=== PATIENT | female | born 1955 | race African-American/Black ===

== ENCOUNTER 2016-03-02 15:16 | Observation (INO) ==
--- NOTE | 2016-03-02 15:37 | Emergency Department Note ---
Disposition Clinical Impression: Pneumonia, Abdominal pain, Hypertension, Chest pain, Family history of coronary artery disease, Obesity, Dyspnea on exertion Disposition: Admitted As Inpatient General Adult HPI - General Chief complaint: ED Chest Pain Stated complaint: CP/CATRACHITO Time Seen by Provider: 03/02/16 15:35 - History of Present Illness HPI Narrative: 61-year-old female reports to the emergency department complaining of chest pain radiating to the left side and down the arm.. She recently had right sided pneumonia and was treated for that. The patient went to a special education administrator office and they were concerned because the patient is expressing chest pain. She also complains of abdominal pain mostly in the epigastric area. There is no history of trauma. No coughing up blood or leg swelling or pain. There is no history of sore throat or runny nose. There is been no diarrhea or bloody stool. The patient describes some constipative change and urinary symptoms. No back pain. No trouble moving the arms or legs independently. There is no history of bowel or bladder dysfunction. No history of acute dysarthria or confusion or seizure. The patient denies any previous coronary disease. There is no personal history of DVT PE or cancer. There is no history of syncope. The pain in the chest is not associated with movement or breathing. She reports a pressure-like sensation radiating to left down the left arm. There is no history of coldness blueness numbness or weakness of the arms or legs. The patient does describe significant dyspnea on exertion. She reports she had a remote stress test but is never had a heart catheterization or cardiac stent. She describes a family history of early coronary disease particularly in the mother. The patient does not usually have chest pain. Pain Scale: 10 - Related Data Home Medications Medication Instructions Recorded Confirmed Aspirin Enteric Coated [Aspirin EC] 81 mg PO DAILY 10/06/14 02/23/15 Citalopram [CeleXA] 40 mg PO DAILY 10/06/14 02/23/15 Esomeprazole Magnesium [Nexium] 40 mg PO DAILY 10/06/14 02/23/15 Estrogens, Conjugated [Premarin] 0.3 mg PO DAILY 10/06/14 02/23/15 HydrOXYzine Pamoate 25 mg PO DAILY PRN 10/06/14 02/23/15 Metoprolol [Lopressor] 25 mg PO BID 10/06/14 02/23/15 Rizatriptan Benzoate [Maxalt Office Nurse Practitioner] 10 mg PO DAILY PRN 02/23/15 02/23/15 Boostrix Tdap 05/15/15 05/15/15 Previous Rx's Medication Instructions Recorded Albuterol Sulfate [Albuterol 2 puff IH Q4HR PRN #1 hfa.aer.ad 02/25/15 Inhaler] Budesonide/Formoterol 80/4.5 2 puff IH BIDR #1 hfa.aer.ad 02/25/15 [Symbicort 80/4.5] PredniSONE 10 mg PO DAILY #33 tablet 02/25/15 Tiotropium [Spiriva] 18 mcg IH 0700 #1 capsule 02/25/15 Clindamycin HCl [Cleocin HCl] 300 mg PO TID #30 cap 05/28/15 Azithromycin [Zithromax] 250 mg PO DAILY #6 tablet 01/07/16 Benzonatate [Tessalon] 200 mg PO TID PRN #30 capsule 01/07/16 GuaiFENesin ER [Mucinex] 600 mg PO BID #20 tbbp.12hr 01/07/16 Doxycycline 100 mg PO BID #14 capsule 01/19/16 MethylPREDNISolone [Medrol] 4 mg PO TAPER #21 tablet 01/19/16 Promethazine/Dextromethorphan 5 ml PO Q6H PRN #120 ml 01/19/16 [Promethazine-Dm Syrup] Azithromycin [Azithromycin 6-Tab 250 mg PO PER PKG DI #6 tab 01/28/16 Pack] Allergies Allergy/AdvReac Type Severity Reaction Status Date / Time Amoxicillin Allergy Unknown See Verified 01/28/16 01:38 Comments cephalexin Allergy Unknown See Verified 01/28/16 01:38 Comments levofloxacin Allergy Unknown See Verified 01/28/16 01:38 Comments loratadine [From Claritin] Allergy Unknown See Verified 01/28/16 01:38 Comments morphine Allergy Unknown Itching Verified 01/28/16 01:38 Oxycodone [From Percocet] Allergy Unknown Itching Verified 01/28/16 01:38 trimethoprim Allergy Unknown See Verified 01/28/16 01:38 Comments promethazine [From Phenergan] AdvReac See Verified 01/28/16 01:38 Comments tamsulosin [From Flomax] AdvReac Chest Pain Verified 01/28/16 01:38 All systems ED: reviewed and negative except as stated. Past Medical History - Past Medical History Medical history: Reports: hypertension, other (Previous stroke) Surgical history: Reports: no surgical history Psychiatric history: Reports: anxiety, depression - Social History Smoking Status: Current every day smoker Smokeless Tobacco Status: No Alcohol use: Reports: none Drug use: Reports: none Physical Exam - General Limitations: no limitations General appearance: alert - Head Head exam: atraumatic, normocephalic, normal inspection - Eye Eye exam: Present: normal appearance, PERRL, EOMI - ENT ENT exam: normal exam, normal oropharynx, mucous membranes moist, normal external ear exam - Neck Neck exam: Present: normal inspection, full ROM, trachea midline. Absent: tenderness - Chest Chest inspection: Present: symmetric chest wall rise. Absent: tenderness - Respiratory Respiratory exam: Present: normal lung sounds bilaterally. Absent: respiratory distress - Cardiovascular Cardiovascular exam: Present: regular rate, normal rhythm, normal heart sounds - Abdominal Exam Abdominal exam: Present: soft, tenderness. Absent: distention, guarding, rebound, rigidity, pulsatile mass Abdominal tenderness: Present: epigastrium, moderate - Extremities Exam Extremities exam: Present: normal inspection, full ROM, normal capillary refill. Absent: tenderness, pedal edema, joint swelling, calf tenderness - Expanded Lower Extremity Exam Hip/Pelvis exam: Present: full ROM. Absent: tenderness Upper leg exam: Present: full ROM. Absent: tenderness Knee exam: Present: full ROM. Absent: tenderness Lower leg exam: Present: full ROM. Absent: tenderness Ankle exam: Present: full ROM. Absent: tenderness Foot/toe exam: Present: full ROM. Absent: tenderness Neurovascular/Tendon exam: Present: normal capillary refill. Absent: motor deficit, sensory deficit, tendon deficit - Back Exam Back exam: Present: normal inspection, full ROM. Absent: tenderness, CVA tenderness (R), CVA tenderness (L), vertebral tenderness - Neurological Exam Neurological exam: Present: alert, oriented X3, CN II-XII intact. Absent: motor sensory deficit - Psychiatric Psychiatric exam: Present: normal affect - Skin Skin exam: Present: warm, dry, intact, normal color. Absent: rash, cyanosis, diaphoresis, erythema, pallor, mottled Course Vital Signs Temperature 97 F L 03/02/16 15:22 Pulse Rate 77 03/02/16 15:22 Respiratory Rate 18 03/02/16 15:22 Blood Pressure 179/87 03/02/16 15:22 O2 Sat by Pulse Oximetry 100 03/02/16 15:22 Temperature 97 F L 03/02/16 15:22 Pulse Rate 76 03/02/16 18:32 Respiratory Rate 16 03/02/16 18:32 Blood Pressure 173/108 03/02/16 18:32 O2 Sat by Pulse Oximetry 100 03/02/16 18:32 Oxygen Delivery Oxygen Delivery Room Air Medical Decision Making - MDM Narrative Medical decision making narrative: The patient is describing dyspnea on exertion associated with chest pain radiating down the left arm. She is over 59, somewhat obese, hypertensive, and has a strong early coronary disease history in her mother. She has not had a stress test or heart catheter for some time. Her symptomatology appears to be new. She also has what appears to be an unresolved pneumonitis on the left side. She was recently treated a few times for bronchitis and pneumonitis which was reportedly on the right. The patient has not been coughing up blood she has no leg swelling or pain there is no evidence of PE. She did describe significant abdominal pain but her CT does not reveal any acute disease. She may have an element of gastritis. The patient's heart scores of 4, she has an apparent upper lobe infection on the left which is either new, resistant, or unresolved from previous. Based on her findings, acute concerns, and cardiovascular risk factors, I thought it would be appropriate to admit the patient, I have consulted the hospitalist foundation coordinator. Aspirin and azithromycin were given. The patient has multiple antibiotic allergies which she describes as severe. - Lab Data Lab results reviewed: Yes I reviewed the patient's lab results. Result diagrams: 03/02/16 15:51 03/02/16 15:51 Lab Results 03/02/16 03/02/16 03/02/16 Range/Units 15:46 15:51 15:51 WBC (4.3-11.1) K/mcL RBC (3.82-4.97) M/mcL Hgb (11.5-15.4) g/dL Hct (35.3-44.9) % MCV (83.0-100.0) fL MCH (28.0-33.3) pg MCHC (31.6-35.5) g/dL RDW (11.5-14.5) % Plt Count (140-400) K/mcL MPV (9.4-12.4) fL Immature Gran % (0-4) % Seg Neutrophils % % Lymphocytes % % Monocytes % % Eosinophils % % Basophils % % Neutrophils # (1.6-8.9) K/mcL Lymphocytes # (0.6-4.6) K/mcL Monocytes # (0.0-1.3) K/mcL Eosinophils # (0.0-0.6) K/mcL Basophils # (0.0-0.2) K/mcL PT 10.8 (9.4-12.1) Seconds INR 1.0 APTT 29.1 (26.0-36.0) Seconds Sodium (136-145) mEq/L Potassium (3.5-4.5) mEq/L Chloride (98-109) mEq/L Carbon Dioxide (19-29) mEq/L BUN (7-20) mg/dL Creatinine (0.57-1.11) mg/dL Est GFR ( Amer) (> 60) Est GFR (Non-Af Amer) (> 60) BUN/Creatinine Ratio (6-26) Glucose (70-99) mg/dL Calculated Osmolality (280-300) Lactic Acid (0.5-2.2) mmol/L Calcium (8.6-10.8) mg/dL Total Bilirubin 0.6 (0.2-1.2) mg/dL Direct Bilirubin 0.2 (0.0-0.5) mg/dL Indirect Bilirubin 0.4 (0.0-1.2) mg/dL AST 21 (5-34) Units/L ALT 17 (0-55) Units/L Alkaline Phosphatase 78 (38-126) Units/L Troponin I (0-0.03) ng/mL C-Reactive Protein 2 (Less than 5) mg/L Serum Total Protein 7.1 (6.0-8.3) g/dL Albumin 3.9 (3.5-5.0) g/dL Globulin 3.2 (2.4-3.5) g/dL Albumin/Globulin Ratio 1.2 (1.1-2.2) Lipase 23 (8-78) Units/L Urine Color Yellow (Yellow) Urine Clarity Clear (Clear) Urine pH 7.0 (5.0-8.0) pH Units Ur Specific [place] 1.017 (1.010-1.025) Urine Protein Negative (Neg-Trace) mg/dL Urine Glucose (UA) Normal (Normal) mg/dL Urine Ketones Negative (Negative) mg/dL Urine Blood Negative (Negative) Urine Nitrite Negative (Negative) Urine Bilirubin Negative (Negative) Urine Urobilinogen Normal (Normal) mg/dL Ur Leukocyte Esterase Negative (Negative) 03/02/16 03/02/16 03/02/16 Range/Units 15:51 15:51 15:51 WBC 5.9 (4.3-11.1) K/mcL RBC 4.34 (3.82-4.97) M/mcL Hgb 12.3 (11.5-15.4) g/dL Hct 37.0 (35.3-44.9) % MCV 85.3 (83.0-100.0) fL MCH 28.3 (28.0-33.3) pg MCHC 33.2 (31.6-35.5) g/dL RDW 14.1 (11.5-14.5) % Plt Count 252 (140-400) K/mcL MPV 10.2 (9.4-12.4) fL Immature Gran % 0.3 (0-4) % Seg Neutrophils % 40.6 % Lymphocytes % 46.2 % Monocytes % 9.8 % Eosinophils % 2.4 % Basophils % 0.7 % Neutrophils # 2.4 (1.6-8.9) K/mcL Lymphocytes # 2.7 (0.6-4.6) K/mcL Monocytes # 0.6 (0.0-1.3) K/mcL Eosinophils # 0.1 (0.0-0.6) K/mcL Basophils # 0.0 (0.0-0.2) K/mcL PT (9.4-12.1) Seconds INR APTT (26.0-36.0) Seconds Sodium 139 (136-145) mEq/L Potassium 4.0 (3.5-4.5) mEq/L Chloride 106 (98-109) mEq/L Carbon Dioxide 22 (19-29) mEq/L BUN 13 (7-20) mg/dL Creatinine 0.79 (0.57-1.11) mg/dL Est GFR ( Amer) > 60 (> 60) Est GFR (Non-Af Amer) > 60 (> 60) BUN/Creatinine Ratio 16 (6-26) Glucose 98 (70-99) mg/dL Calculated Osmolality 288 (280-300) Lactic Acid (0.5-2.2) mmol/L Calcium 9.6 (8.6-10.8) mg/dL Total Bilirubin (0.2-1.2) mg/dL Direct Bilirubin (0.0-0.5) mg/dL Indirect Bilirubin (0.0-1.2) mg/dL AST (5-34) Units/L ALT (0-55) Units/L Alkaline Phosphatase (38-126) Units/L Troponin I 0.00 (0-0.03) ng/mL C-Reactive Protein (Less than 5) mg/L Serum Total Protein (6.0-8.3) g/dL Albumin (3.5-5.0) g/dL Globulin (2.4-3.5) g/dL Albumin/Globulin Ratio (1.1-2.2) Lipase (8-78) Units/L Urine Color (Yellow) Urine Clarity (Clear) Urine pH (5.0-8.0) pH Units Ur Specific [place] (1.010-1.025) Urine Protein (Neg-Trace) mg/dL Urine Glucose (UA) (Normal) mg/dL Urine Ketones (Negative) mg/dL Urine Blood (Negative) Urine Nitrite (Negative) Urine Bilirubin (Negative) Urine Urobilinogen (Normal) mg/dL Ur Leukocyte Esterase (Negative) 03/02/16 Range/Units 17:16 WBC (4.3-11.1) K/mcL RBC (3.82-4.97) M/mcL Hgb (11.5-15.4) g/dL Hct (35.3-44.9) % MCV (83.0-100.0) fL MCH (28.0-33.3) pg MCHC (31.6-35.5) g/dL RDW (11.5-14.5) % Plt Count (140-400) K/mcL MPV (9.4-12.4) fL Immature Gran % (0-4) % Seg Neutrophils % % Lymphocytes % % Monocytes % % Eosinophils % % Basophils % % Neutrophils # (1.6-8.9) K/mcL Lymphocytes # (0.6-4.6) K/mcL Monocytes # (0.0-1.3) K/mcL Eosinophils # (0.0-0.6) K/mcL Basophils # (0.0-0.2) K/mcL PT (9.4-12.1) Seconds INR APTT (26.0-36.0) Seconds Sodium (136-145) mEq/L Potassium (3.5-4.5) mEq/L Chloride (98-109) mEq/L Carbon Dioxide (19-29) mEq/L BUN (7-20) mg/dL Creatinine (0.57-1.11) mg/dL Est GFR ( Amer) (> 60) Est GFR (Non-Af Amer) (> 60) BUN/Creatinine Ratio (6-26) Glucose (70-99) mg/dL Calculated Osmolality (280-300) Lactic Acid 2.0 (0.5-2.2) mmol/L Calcium (8.6-10.8) mg/dL Total Bilirubin (0.2-1.2) mg/dL Direct Bilirubin (0.0-0.5) mg/dL Indirect Bilirubin (0.0-1.2) mg/dL AST (5-34) Units/L ALT (0-55) Units/L Alkaline Phosphatase (38-126) Units/L Troponin I (0-0.03) ng/mL C-Reactive Protein (Less than 5) mg/L Serum Total Protein (6.0-8.3) g/dL Albumin (3.5-5.0) g/dL Globulin (2.4-3.5) g/dL Albumin/Globulin Ratio (1.1-2.2) Lipase (8-78) Units/L Urine Color (Yellow) Urine Clarity (Clear) Urine pH (5.0-8.0) pH Units Ur Specific [place] (1.010-1.025) Urine Protein (Neg-Trace) mg/dL Urine Glucose (UA) (Normal) mg/dL Urine Ketones (Negative) mg/dL Urine Blood (Negative) Urine Nitrite (Negative) Urine Bilirubin (Negative) Urine Urobilinogen (Normal) mg/dL Ur Leukocyte Esterase (Negative) - Radiology Data Radiology results reviewed: Yes I reviewed the patient's radiology results.
[2016-03-02 16:00] LABS: Basophils % 0.7 %; Eosinophils # 0.1 K/mcL (0.0-0.6); Eosinophils % 2.4 %; Hemoglobin 12.3 g/dL (11.5-15.4); Immature Granulocytes % 0.3 % (0-4); Lymphocytes # 2.7 K/mcL (0.6-4.6); Lymphocytes % 46.2 %; Mean Corpuscular HGB Conc 33.2 g/dL (31.6-35.5); Mean Corpuscular Hemoglobin 28.3 pg (28.0-33.3); Mean Corpuscular Volume 85.3 fL (83.0-100.0); Mean Platelet Volume 10.2 fL (9.4-12.4); Monocytes # 0.6 K/mcL (0.0-1.3); Monocytes % 9.8 %; Neutrophils # 2.4 K/mcL (1.6-8.9); Platelet Count 252 K/mcL (140-400); Red Blood Count 4.34 M/mcL (3.82-4.97); Red Cell Distribution Width 14.1 % (11.5-14.5); Segmented Neutrophils % 40.6 %
[2016-03-02 16:13] LABS: BUN/Creatinine Ratio 16 (6-26); Blood Urea Nitrogen 13 mg/dL (7-20); Calcium 9.6 mg/dL (8.6-10.8); Carbon Dioxide 22 mEq/L (19-29); Chloride 106 mEq/L (98-109); Glucose 98 mg/dL (70-99); Osmolality,Calculated 288 (280-300); Sodium 139 mEq/L (136-145); eGFR For African Americans > 60 (> 60); eGFR For Non-African Americans > 60 (> 60)
[2016-03-02 16:14] LABS: Albumin 3.9 g/dL (3.5-5.0); Albumin/Globulin Ratio 1.2 (1.1-2.2); Bilirubin,Direct 0.2 mg/dL (0.0-0.5); Bilirubin,Indirect 0.4 mg/dL (0.0-1.2); Bilirubin,Total 0.6 mg/dL (0.2-1.2); Globulin 3.2 g/dL (2.4-3.5); Total Protein 7.1 g/dL (6.0-8.3)
[2016-03-02 16:17] LABS: Prothrombin Time 10.8 Seconds (9.4-12.1)
[2016-03-02 16:20] LABS: Activated Partial Thrombo Time 29.1 Seconds (26.0-36.0)
[2016-03-02 17:59] LABS: Bilirubin,Urine Negative (Negative); Blood,Urine Negative (Negative); Clarity,Urine Clear (Clear); Color,Urine Yellow (Yellow); Glucose,Urine (UA) Normal (Normal); Ketones,Urine Negative (Negative); Leukocyte Esterase,Urine Negative (Negative); Nitrite,Urine Negative (Negative); Protein,Urine Negative (Neg-Trace); Specific Gravity,Urine 1.017 (1.010-1.025); Urobilinogen,Urine Normal (Normal)
[2016-03-02] MEDS ORDERED: Aspirin 325 MG TABLET PO ONE (18:13)
[2016-03-02] MEDS ORDERED: Azithromycin 500 MG in D5% in Water 250 ML IVPB ONE (18:23)
[2016-03-02] MEDS ORDERED: *HR* Labetalol 20 MG/4 ML SYRINGE IVP ONE (18:47)
[2016-03-02] MEDS ORDERED: Naloxone 0.4 MG/ML INJ IVP PRN (20:47)
[2016-03-02] MEDS ORDERED: Acetaminophen 325 MG TABLET PO PRN (20:47)
[2016-03-02] MEDS ORDERED: Mag Hydrox/Al Hydrox/Simeth 30 ML UDC PO PRN (20:47)
[2016-03-02] MEDS ORDERED: MOM Conc 10 ML UD.LIQ PO PRN (20:47)
[2016-03-02] MEDS ORDERED: hydrOXYzine pamoate 25 MG CAPSULE PO PRN (20:49)
[2016-03-02] MEDS ORDERED: Albuterol 2.5 MG/3 ML NEBULIZER IH PRN (20:51)
[2016-03-02] MEDS ORDERED: Mirtazapine 15 MG TABLET PO SCH (21:00)
--- NOTE | 2016-03-02 21:07 | Internal Med History&Physical ---
Date of Encounter: 03/03/16 Time of Encounter: 21:05 Assessment and Plan (1) Pneumonia Current visit: Yes Status: Acute CT of chest shows ground glass opacities in Left upper lobe and increase in size of left paratracheal lymph node. Patient was treated for community acquired pneumonia last month with azithromycin. She has allergies to amoxicillin, cephalexin, and levofloxacin. Will start treatment with doxycycline and aztreonam. Qualifiers: Pneumonia type: due to unspecified organism Laterality: left Lung location: upper lobe of lung Qualified Code(s): J18.9 - Pneumonia, unspecified organism (2) Chest pain Current visit: Yes Status: Acute Patient presented with chest pain radiating to left side and left arm with shortness of breath and numbness of left hand. History of HTN and obesity. Family history of CAD, with mother who of GA in her 40s. Initial tromponins negative and EKG with sinus rhythm and no acute changes. CT shows ground glass opacities in Left upper lobe consistent with pneumonia. Patient likely having pleuritic chest pain, but will rule out GA. 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 Denies any recent cough. Continue home dose of budesonide/formotorol and spiriva duoneb treatments QIDR albuterol nebulizer q2hr PRN Qualifiers: COPD type: unspecified COPD Qualified Code(s): J44.9 - Chronic obstructive pulmonary disease, unspecified (4) Abdominal pain Current visit: Yes Status: Acute Patient with history of GERD, epigastric tenderness. Patient complaining she has not had bowel movement in [address] Abdomen/pelvis showed no acute process in abdomen or pelvis Omeprazole 20mg daily GI cocktail PRN Colace and senna prn for constipation. Qualifiers: Abdominal location: epigastric Qualified Code(s): R10.13 - Epigastric pain (5) Hypertension Current visit: Yes Status: Acute continue home dose of metoprolol Qualifiers: Hypertension type: essential hypertension Qualified Code(s): I10 - Essential (primary) hypertension (6) DVT prophylaxis Current visit: Yes Status: Acute ambulate as tolerated anti-embolic stockings Heparin 5,000u SQ BID Internal Medicine - H&P: HPI Chief complaint: chest pain Admitted From: Emergency Dept Plans for Post Hospital Care: Home History of present illness: Ms. Hartman is a 61 year old female with history of hypertension, TIA, GERD, COPD who presented to the ED today with chest pain. She reports she had some chest pressure last evening, but it went away. This morning when she was at her podiatry appointment, the chest pain returned, and was radiating to her left side and down her left arm, with shortness of breath and left hand tingling. Evaluation in the ED included EKG which showed sinus rhythm and no ST changes, troponin was negative at 0.00. Labs were grossly normal. Chest Xray showed interval resolution of right basilar pneumonia or atelectasis and otherwise no acute cardiopulmonary findings. Chest CT was obtained and showed no PE, patchy areas of ground glass attenuation in left upper lobe likely infectious or inflammatory, no acute findings in abdomen or pelvis. On exam, the patient is alert and oriented, in no distress. She is satting 99% on room air. Denies any current chest pain. Her heart has regular rate and rhythm and lungs are clear bilaterally. Abdomen is diffusely mildly tender, with epigastric area with increased tenderness. Past Med Surg Social Fam HX - Past Medical History Medical history: arthritis, COPD, DVT, GERD, hypertension, TIA, other Psychiatric history: anxiety, depression - Past Surgical History Surgical History: hysterectomy, knee replacement (bilateral) - Social History Smoking Status: Current every day smoker Smokeless Tobacco Status: No Alcohol use: none Drug use: none - Family History Mother Living Status: Hx Family Cardiac Disorders: Yes (mother young from heart dx) Hx Family Respiratory Disorders: No Hx Family Cancer: No Hx Family GI Disorders: No Hx Family Endocrine Disorder: No Hx Family Neuromuscular Disorders: No Hx Family Neurologic Disorders: No Hx Family HEENT Disorders: No Hx Family Autoimmune Disorders: No Father Name: homer hartman Age: 85 Living Status: Still Living Hx Family Cardiac Disorders: No Hx Family Respiratory Disorders: No Hx Family Cancer: No Hx Family GI Disorders: No Hx Family Endocrine Disorder: Yes Hx Family Neuromuscular Disorders: No Hx Family Neurologic Disorders: Yes (Dementia) Hx Family HEENT Disorders: No Hx Family Autoimmune Disorders: No Internal Medicine - H&P: Meds Aspirin Enteric Coated [Aspirin EC] 81 mg PO DAILY 10/06/14 [History] Citalopram [CeleXA] 40 mg PO DAILY 10/06/14 [History] Esomeprazole Magnesium [Nexium] 40 mg PO DAILY 10/06/14 [History] HydrOXYzine Pamoate 25 mg PO Q8H PRN 10/06/14 [History] Metoprolol [Lopressor] 25 mg PO BID 10/06/14 [History] Rizatriptan Benzoate [Maxalt Manager Heavy Duty] 10 mg PO DAILY PRN 02/23/15 [History] Albuterol Sulfate [Albuterol Inhaler] 2 puff IH Q4HR PRN #1 hfa.aer.ad 02/25/15 [Rx] Budesonide/Formoterol 80/4.5 [Symbicort 80/4.5] 2 puff IH BIDR #1 hfa.aer.ad [Rx] Mirtazapine [Mirtazapine] 30 mg PO HS 03/02/16 [History] Tiotropium [Spiriva] 18 mcg IH DAILY 03/02/16 [History] Allergies Amoxicillin Allergy (Unknown, Verified 01/28/16 01:38) See Comments patient cannot remember reaction cephalexin Allergy (Unknown, Verified 01/28/16 01:38) See Comments patient cannot remember reaction levofloxacin Allergy (Unknown, Verified 01/28/16 01:38) See Comments patient cannot remember reaction loratadine [From Claritin] Allergy (Unknown, Verified 01/28/16 01:38) See Comments patient cannot remember reaction morphine Allergy (Unknown, Verified 01/28/16 01:38) Itching Oxycodone [From Percocet] Allergy (Unknown, Verified 01/28/16 01:38) Itching trimethoprim Allergy (Unknown, Verified 01/28/16 01:38) See Comments patient cannot remember reaction promethazine [From Phenergan] Adverse Reaction (Verified 01/28/16 01:38) See Comments tamsulosin [From Flomax] Adverse Reaction (Verified 01/28/16 01:38) Chest Pain All Systems PM: A 10-system review of systems was performed and is negative for pertinent findings except as documented above in the HPI. - Constitutional Constitutional: no chills, no fever(s), no night sweats - EENT Eyes: no change in vision, no discharge, no pain, no photophobia Ears: no ear discharge, no ear pain, no tinnitus Nose, mouth and throat: post-nasal drip, no dysphagia, no nasal discharge, no neck pain, no sore throat - Cardiovascular Cardiovascular ROS IM: chest pain, dyspnea on exertion, palpitations, no diaphoresis, no dyspnea, no lightheadedness, no syncope - Respiratory Respiratory: dyspnea on exertion, no cough, no dyspnea, no wheezing, no excessive phlegm production - Gastrointestinal Gastrointestinal: abdominal pain, constipation, no diarrhea, no hematemesis, no hematochezia, no melena, no nausea, no vomiting - Genitourinary Genitourinary: no change in urinary stream, no dysuria, no flank pain, no hematuria - Musculoskeletal Musculoskeletal ROS IM: no numbness, no tingling - Integumentary Integumentary IM: no rash, no unusual bruising - Neurological Neurological ROS: no confusion, no convulsions, no focal weakness, no numbness, no tingling, no tremor(s) - Hematologic/Lymphatic Hematologic/Lymphatic: no easy bruising - Constitutional Vitals: Temp Pulse Resp BP Pulse Ox 98.4 F 75 18 142/84 97 03/02/16 20:22 03/02/16 20:22 03/02/16 20:22 03/02/16 20:22 03/02/16 20:22 General appearance: Present: A&O X 3, no acute distress - Head Head exam: Present: atraumatic, normocephalic - Eye Eye exam: Present: PERRL, conjuntiva pink, sclera anicteric Pupils: Present: PERRL - Neck Neck exam general surgery: Present: supple, trachea midline. Absent: lymphadenopathy - Respiratory Respiratory exam: Present: CTAB. Absent: accessory muscle use, rales, rhonchi, wheezes - Cardiovascular Cardiovascular exam: Present: RRR, +S1, +S2. Absent: diastolic murmur, gallop, rubs, systolic murmur - GI/Abdominal GI/Abdominal exam: Present: normal bowel sounds, soft, tenderness (diffuse tenderness, with increased tenderness in epigastric region), no peritoneal signs. Absent: distended - Extremities Exam Extremities exam: Present: pedal edema (right foot +1, patient reports this is chronic), warm, radial pulses palpable and symetrical. Absent: calf tenderness , cyanotic - Neurological Exam Neurological exam: Present: CN II-XII intact, oriented X3, no focal deficits. Absent: pronater drift, facial droop, speech deficit - Skin Skin exam: Present: dry, intact Internal Med - H&P Results - Labs CBC & Chem 7: 03/02/16 15:51 03/02/16 15:51 Labs: All Lab Results (24 Hours) 03/02/16 03/02/16 03/02/16 Range/Units 15:46 15:51 15:51 WBC (4.3-11.1) K/mcL RBC (3.82-4.97) M/mcL Hgb (11.5-15.4) g/dL Hct (35.3-44.9) % MCV (83.0-100.0) fL MCH (28.0-33.3) pg MCHC (31.6-35.5) g/dL RDW (11.5-14.5) % Plt Count (140-400) K/mcL MPV (9.4-12.4) fL Immature Gran % (0-4) % Seg Neutrophils % % Lymphocytes % % Monocytes % % Eosinophils % % Basophils % % Neutrophils # (1.6-8.9) K/mcL Lymphocytes # (0.6-4.6) K/mcL Monocytes # (0.0-1.3) K/mcL Eosinophils # (0.0-0.6) K/mcL Basophils # (0.0-0.2) K/mcL PT 10.8 (9.4-12.1) Seconds INR 1.0 APTT 29.1 (26.0-36.0) Seconds Sodium (136-145) mEq/L Potassium (3.5-4.5) mEq/L Chloride (98-109) mEq/L Carbon Dioxide (19-29) mEq/L BUN (7-20) mg/dL Creatinine (0.57-1.11) mg/dL Est GFR ( Amer) (> 60) Est GFR (Non-Af Amer) (> 60) BUN/Creatinine Ratio (6-26) Glucose (70-99) mg/dL Calculated Osmolality (280-300) Lactic Acid (0.5-2.2) mmol/L Calcium (8.6-10.8) mg/dL Total Bilirubin 0.6 (0.2-1.2) mg/dL Direct Bilirubin 0.2 (0.0-0.5) mg/dL Indirect Bilirubin 0.4 (0.0-1.2) mg/dL AST 21 (5-34) Units/L ALT 17 (0-55) Units/L Alkaline Phosphatase 78 (38-126) Units/L Troponin I (0-0.03) ng/mL C-Reactive Protein 2 (Less than 5) mg/L Serum Total Protein 7.1 (6.0-8.3) g/dL Albumin 3.9 (3.5-5.0) g/dL Globulin 3.2 (2.4-3.5) g/dL Albumin/Globulin Ratio 1.2 (1.1-2.2) Lipase 23 (8-78) Units/L Urine Color Yellow (Yellow) Urine Clarity Clear (Clear) Urine pH 7.0 (5.0-8.0) pH Units Ur Specific [place] 1.017 (1.010-1.025) Urine Protein Negative (Neg-Trace) mg/dL Urine Glucose (UA) Normal (Normal) mg/dL Urine Ketones Negative (Negative) mg/dL Urine Blood Negative (Negative) Urine Nitrite Negative (Negative) Urine Bilirubin Negative (Negative) Urine Urobilinogen Normal (Normal) mg/dL Ur Leukocyte Esterase Negative (Negative) 03/02/16 03/02/16 03/02/16 Range/Units 15:51 15:51 15:51 WBC 5.9 (4.3-11.1) K/mcL RBC 4.34 (3.82-4.97) M/mcL Hgb 12.3 (11.5-15.4) g/dL Hct 37.0 (35.3-44.9) % MCV 85.3 (83.0-100.0) fL MCH 28.3 (28.0-33.3) pg MCHC 33.2 (31.6-35.5) g/dL RDW 14.1 (11.5-14.5) % Plt Count 252 (140-400) K/mcL MPV 10.2 (9.4-12.4) fL Immature Gran % 0.3 (0-4) % Seg Neutrophils % 40.6 % Lymphocytes % 46.2 % Monocytes % 9.8 % Eosinophils % 2.4 % Basophils % 0.7 % Neutrophils # 2.4 (1.6-8.9) K/mcL Lymphocytes # 2.7 (0.6-4.6) K/mcL Monocytes # 0.6 (0.0-1.3) K/mcL Eosinophils # 0.1 (0.0-0.6) K/mcL Basophils # 0.0 (0.0-0.2) K/mcL PT (9.4-12.1) Seconds INR APTT (26.0-36.0) Seconds Sodium 139 (136-145) mEq/L Potassium 4.0 (3.5-4.5) mEq/L Chloride 106 (98-109) mEq/L Carbon Dioxide 22 (19-29) mEq/L BUN 13 (7-20) mg/dL Creatinine 0.79 (0.57-1.11) mg/dL Est GFR ( Amer) > 60 (> 60) Est GFR (Non-Af Amer) > 60 (> 60) BUN/Creatinine Ratio 16 (6-26) Glucose 98 (70-99) mg/dL Calculated Osmolality 288 (280-300) Lactic Acid (0.5-2.2) mmol/L Calcium 9.6 (8.6-10.8) mg/dL Total Bilirubin (0.2-1.2) mg/dL Direct Bilirubin (0.0-0.5) mg/dL Indirect Bilirubin (0.0-1.2) mg/dL AST (5-34) Units/L ALT (0-55) Units/L Alkaline Phosphatase (38-126) Units/L Troponin I 0.00 (0-0.03) ng/mL C-Reactive Protein (Less than 5) mg/L Serum Total Protein (6.0-8.3) g/dL Albumin (3.5-5.0) g/dL Globulin (2.4-3.5) g/dL Albumin/Globulin Ratio (1.1-2.2) Lipase (8-78) Units/L Urine Color (Yellow) Urine Clarity (Clear) Urine pH (5.0-8.0) pH Units Ur Specific [place] (1.010-1.025) Urine Protein (Neg-Trace) mg/dL Urine Glucose (UA) (Normal) mg/dL Urine Ketones (Negative) mg/dL Urine Blood (Negative) Urine Nitrite (Negative) Urine Bilirubin (Negative) Urine Urobilinogen (Normal) mg/dL Ur Leukocyte Esterase (Negative) 03/02/16 Range/Units 17:16 WBC (4.3-11.1) K/mcL RBC (3.82-4.97) M/mcL Hgb (11.5-15.4) g/dL Hct (35.3-44.9) % MCV (83.0-100.0) fL MCH (28.0-33.3) pg MCHC (31.6-35.5) g/dL RDW (11.5-14.5) % Plt Count (140-400) K/mcL MPV (9.4-12.4) fL Immature Gran % (0-4) % Seg Neutrophils % % Lymphocytes % % Monocytes % % Eosinophils % % Basophils % % Neutrophils # (1.6-8.9) K/mcL Lymphocytes # (0.6-4.6) K/mcL Monocytes # (0.0-1.3) K/mcL Eosinophils # (0.0-0.6) K/mcL Basophils # (0.0-0.2) K/mcL PT (9.4-12.1) Seconds INR APTT (26.0-36.0) Seconds Sodium (136-145) mEq/L Potassium (3.5-4.5) mEq/L Chloride (98-109) mEq/L Carbon Dioxide (19-29) mEq/L BUN (7-20) mg/dL Creatinine (0.57-1.11) mg/dL Est GFR ( Amer) (> 60) Est GFR (Non-Af Amer) (> 60) BUN/Creatinine Ratio (6-26) Glucose (70-99) mg/dL Calculated Osmolality (280-300) Lactic Acid 2.0 (0.5-2.2) mmol/L Calcium (8.6-10.8) mg/dL Total Bilirubin (0.2-1.2) mg/dL Direct Bilirubin (0.0-0.5) mg/dL Indirect Bilirubin (0.0-1.2) mg/dL AST (5-34) Units/L ALT (0-55) Units/L Alkaline Phosphatase (38-126) Units/L Troponin I (0-0.03) ng/mL C-Reactive Protein (Less than 5) mg/L Serum Total Protein (6.0-8.3) g/dL Albumin (3.5-5.0) g/dL Globulin (2.4-3.5) g/dL Albumin/Globulin Ratio (1.1-2.2) Lipase (8-78) Units/L Urine Color (Yellow) Urine Clarity (Clear) Urine pH (5.0-8.0) pH Units Ur Specific [place] (1.010-1.025) Urine Protein (Neg-Trace) mg/dL Urine Glucose (UA) (Normal) mg/dL Urine Ketones (Negative) mg/dL Urine Blood (Negative) Urine Nitrite (Negative) Urine Bilirubin (Negative) Urine Urobilinogen (Normal) mg/dL Ur Leukocyte Esterase (Negative)
[2016-03-02] MEDS ORDERED: GI Cocktail 40 ML EACH PO PRN (21:32)
[2016-03-03] MEDS: Doxycycline 100 MG in 0.9 % Sodium Chloride Mini Bag 100 ML IVPB SCH ×2 (03:14→11:08)
[2016-03-03] MEDS: Aztreonam 1,000 MG in D5% in Water (Mini-Bag+) 100 ML IVPB SCH ×2 (05:27→09:43)
[2016-03-03 05:48] LABS: Basophils % 0.7 %; Eosinophils # 0.2 K/mcL (0.0-0.6); Eosinophils % 3.4 %; Hematocrit 32.9 % (35.3-44.9); Immature Granulocytes % 0.2 % (0-4); Lymphocytes # 2.9 K/mcL (0.6-4.6); Lymphocytes % 52.2 %; Mean Corpuscular HGB Conc 32.5 g/dL (31.6-35.5); Mean Corpuscular Hemoglobin 28.3 pg (28.0-33.3); Mean Platelet Volume 10.6 fL (9.4-12.4); Monocytes # 0.5 K/mcL (0.0-1.3); Monocytes % 9.1 %; Neutrophils # 1.9 K/mcL (1.6-8.9); Platelet Count 217 K/mcL (140-400); Red Blood Count 3.78 M/mcL (3.82-4.97); Red Cell Distribution Width 14.3 % (11.5-14.5); Segmented Neutrophils % 34.4 %
[2016-03-03 05:49] LABS: Hemoglobin 10.7 g/dL (11.5-15.4)
[2016-03-03] MEDS ORDERED: *HR* Heparin 5,000 UNIT/ML VIAL SQ SCH (06:00)
[2016-03-03 06:04] LABS: BUN/Creatinine Ratio 16 (6-26); Blood Urea Nitrogen 13 mg/dL (7-20); Calcium 8.9 mg/dL (8.6-10.8); Carbon Dioxide 21 mEq/L (19-29); Chloride 109 mEq/L (98-109); Glucose 140 mg/dL (70-99); Osmolality,Calculated 294 (280-300); Potassium 3.5 mEq/L (3.5-4.5); Sodium 141 mEq/L (136-145); eGFR For African Americans > 60 (> 60); eGFR For Non-African Americans > 60 (> 60)
[2016-03-03] MEDS ORDERED: Regadenoson 0.4 MG/5 ML SYRINGE IVP ONE (06:31)
[2016-03-03] MEDS ORDERED: Tiotropium 18 MCG inhalation IH SCH (09:00)
[2016-03-03] MEDS ORDERED: Aspirin Enteric Coated 81 MG Tablet PO SCH (09:00)
--- NOTE | 2016-03-03 09:53 | Internal Med Progress Note ---
Date of Encounter: 03/03/16 - Constitutional Vitals: Temp Pulse Resp BP Pulse Ox 98.3 F 65 14 157/82 99 03/03/16 04:48 03/03/16 04:48 03/03/16 04:48 03/03/16 04:48 03/03/16 09:22 General appearance: Present: A&O X 3, no acute distress Internal Medicine: Result - Labs CBC & Chem 7: 03/03/16 05:12 03/03/16 05:12 Labs: Short CBC 03/03/16 Range/Units 05:12 WBC 5.6 (4.3-11.1) K/mcL Hgb 10.7 L D (11.5-15.4) g/dL Hct 32.9 L (35.3-44.9) % Plt Count 217 (140-400) K/mcL Neutrophils # 1.9 (1.6-8.9) K/mcL BMP 03/03/16 05:12 Sodium 141 Potassium 3.5 Chloride 109 Carbon Dioxide 21 BUN 13 Creatinine 0.79 Glucose 140 H Calcium 8.9 Cardiac Enzymes 03/02/16 03/03/16 Range/Units 21:55 05:12 Troponin I 0.01 0.01 (0-0.03) ng/mL - ABG Interpretation ABG results: PT/INR, D-dimer PT 10.8 Seconds (9.4-12.1) 03/02/16 15:51 Consult Discharge Plan - Plan Referrals: Jorge Glover MD [Primary Care Provider] -
[2016-03-03] MEDS: Budesonide/Formoterol 80/4.5 MDI IH SCH ×2 (10:43→10:45)
[2016-03-03] MEDS: Ipratropium/Albuterol Neb 3 ML IH SCH ×2 (10:43→10:44)
[2016-03-03 11:55] VITALS: BP 141/72
--- NOTE | 2016-03-03 12:25 | Discharge Summary ---
<OleYuniel james - Last Filed: 03/03/16 15:28> Date of Encounter: 03/03/16 Time of Encounter: 11:00 - Discharge Diagnosis (1) Chest pain Priority: Primary Status: Acute Comments: -Patient had a couple episodes of L sided chest pain concerning for IL -EKG, Trop neg. -CTA showed some ground glass opacities 2ndary to inflammation vs infection. Patient placed on IV abx for a day. Clinical judgement that patient does not have pneumonia, but rather a residual effect of pneumonia treated roughly 3-4 weeks ago with abx. Patient denies Fever. Does have mild SOB, no WBC. -Pending normal stress test, patient may be discharged home and followup with cardiology. Qualifiers: Chest pain type: chest pain on breathing Qualified Code(s): R07.1 - Chest pain on breathing (2) Acute costochondritis Priority: Primary Status: Acute Comments: -ACS workup negative -CTA negative -[place] reproducible with palpation -Recommend OTC NSAIDs for pain. - Discharge Medications Prescriptions: Cyclobenzaprine [Flexeril] 10 mg PO TID PRN #30 tablet PRN Reason: Muscle Spasm Home Medications: Aspirin Enteric Coated [Aspirin EC] 81 mg PO DAILY 10/06/14 [History] Citalopram [CeleXA] 40 mg PO DAILY 10/06/14 [History] Esomeprazole Magnesium [Nexium] 40 mg PO DAILY 10/06/14 [History] HydrOXYzine Pamoate 25 mg PO Q8H PRN 10/06/14 [History] Metoprolol [Lopressor] 25 mg PO BID 10/06/14 [History] Rizatriptan Benzoate [Maxalt [employer] Manager] 10 mg PO DAILY PRN 02/23/15 [History] Albuterol Sulfate [Albuterol Inhaler] 2 puff IH Q4HR PRN #1 hfa.aer.ad 02/25/15 [Rx] Budesonide/Formoterol 80/4.5 [Symbicort 80/4.5] 2 puff IH BIDR #1 hfa.aer.ad [Rx] Mirtazapine 30 mg PO HS 03/02/16 [History] Tiotropium [Spiriva] 18 mcg IH DAILY 03/02/16 [History] Cyclobenzaprine [Flexeril] 10 mg PO TID PRN #30 tablet 03/03/16 [Rx] Allergies/Adverse Reactions: Allergies Amoxicillin Allergy (Unknown, Verified 01/28/16 01:38) See Comments patient cannot remember reaction cephalexin Allergy (Unknown, Verified 01/28/16 01:38) See Comments patient cannot remember reaction levofloxacin Allergy (Unknown, Verified 01/28/16 01:38) See Comments patient cannot remember reaction loratadine [From Claritin] Allergy (Unknown, Verified 01/28/16 01:38) See Comments patient cannot remember reaction morphine Allergy (Unknown, Verified 01/28/16 01:38) Itching Oxycodone [From Percocet] Allergy (Unknown, Verified 01/28/16 01:38) Itching trimethoprim Allergy (Unknown, Verified 01/28/16 01:38) See Comments patient cannot remember reaction promethazine [From Phenergan] Adverse Reaction (Verified 01/28/16 01:38) See Comments tamsulosin [From Flomax] Adverse Reaction (Verified 01/28/16 01:38) Chest Pain Procedures/tests Complete & Pending: Procedures Performed prior 72 hours Category Date Time Status NM amparo perf SPECT multi [NM] Routine Exams 03/02/16 21:31 Taken SP pharm nuclear stress Routine Y 03/03/16 07:38 Completed Date of admission: 03/02/16 18:33 Primary care physician: Jorge Glover MD Discharging clinician: Yuniel Maurice Anticipated date of discharge: 03/03/16 (Pending normal stress test read) - Patient Status Disposition: Home, Self-Care Condition: Good Functional capacity at discharge: independent ambulation Overall status at discharge: patient is progressing back to baseline - Discharge Instructions Instructions: Chest Pain (DC), Chronic Hypertension (DC), Pneumonia (DC) Follow Up With: Jorge Glover MD [Primary Care Provider] - Genaro Day MD [Partnered Physician] - Additional Instructions: Please f/u with your primary care doctor in next 4 days. Return to the ED if have new or worsening CP. Please followup with cardiology as an outpatient - Diet and Activity Activity: increase activity as tolerated Diet: advance to your usual diet Interval History: Patient feels much better today than yesterday. Admits to mild CP with a deep breath and palpation on the anterior wall of the chest. States that she is not SOB when in bed. Does have a mild cough, non productive. She does live at home by herself and feels comfortable going home. Hospital course: Ms. Hartman is a 61 year old female who presented with CP. Cardiac evaluation negative. CTA showed no PE. Residual structural changes resembling pneumonia seen. Patient does not need home abx therapy. See note for details. Time spent discussing smoking cessation with patient: more than 10 minutes - Time Spent with Patient Total time spent providing and/or coordinating discharge services: Less than 30 minutes - Constitutional Vitals: Temp Pulse Resp BP Pulse Ox 98.2 F 73 15 141/72 97 03/03/16 11:53 03/03/16 11:53 03/03/16 11:53 03/03/16 11:53 03/03/16 11:53 General appearance: Present: A&O X 3, no acute distress - Head Head exam: Present: atraumatic, normal inspection - Neck Neck exam general surgery: Present: normal inspection (complained of tender. No errythema or deformity noted. ) - Respiratory Respiratory exam: Present: decreased breath sounds - Cardiovascular Cardiovascular exam: Present: RRR. Absent: diastolic murmur, systolic murmur - GI/Abdominal GI/Abdominal exam: Present: soft, no peritoneal signs. Absent: tenderness - Psychiatric Psychiatric exam: Present: normal affect, normal mood - Other Additional findings: CP with palpation <Domingo Price - Last Filed: 03/03/16 15:59> Date of Encounter: 03/03/16 - Discharge Diagnosis (1) Acute costochondritis Priority: Primary Status: Acute (2) Chest pain Status: Acute Qualifiers: Chest pain type: chest pain on breathing Qualified Code(s): R07.1 - Chest pain on breathing (3) Neck muscle spasm Priority: Primary Status: Acute (4) Hypertension Priority: Secondary Status: Chronic Qualifiers: Hypertension type: essential hypertension Qualified Code(s): I10 - Essential (primary) hypertension (5) COPD (chronic obstructive pulmonary disease) Priority: Secondary Status: Chronic Qualifiers: COPD type: emphysema Emphysema type: other Qualified Code(s): J43.8 - Other emphysema (6) Tobacco abuse Status: Chronic Procedures/tests Complete & Pending: Procedures Performed prior 72 hours Category Date Time Status NM amparo perf SPECT multi [NM] Routine Exams 03/02/16 21:31 Taken SP pharm nuclear stress Routine Y 03/03/16 07:38 Completed Date of admission: 03/02/16 18:33 Primary care physician: Jorge Glover MD Hospital course: Ms. Hartman is a 61 year old female - Time Spent with Patient Total time spent providing and/or coordinating discharge services: - Constitutional Vitals: Temp Pulse Resp BP Pulse Ox 98.2 F 73 15 141/72 97 03/03/16 11:53 03/03/16 11:53 03/03/16 11:53 03/03/16 11:53 03/03/16 11:53 - Attending Attestation I examined this patient and my medical decision-making was reviewed with the Resident Physician on 03/03/16. I agree with the documented findings, disposition and treatment plan as described except to the extent set forth below. Ms. Hartman only complains of L neck pain. - spasm. Stress test negative. Exam Alert. Comfortable. Heart reg Lungs no wheeze Plan D/C today. Follow up with PCP.
--- NOTE | 2016-03-03 12:36 | Nuclear Medicine Stress Report ---
Regadenoson Nuclear Stress Name: Jo-Ann Hartman Date of Study: 03/03/2016 Date: 1955 Ht: 70.0 in Medical Record#: [id number] Age: 61 Wt: 206.0 lb Gender: Female Order #: [id number] Location: [facility] Room: 2N6 Supervising Provider: Aldo Garcia CNP Reading Physician: Daniel Guillen MD, [facility] Ordering Physician: Arnie Keith MD Primary Care Physician: Jorge Glover MD Stress Technologist: Corey Maradiaga [employer], [facility] Web Development Manager: Lissette Stewart Indications: Chest Pain Impression: Patient reported mild chest pain prior to the test. Chest pain mildly worsened with regadenoson. Non-specific ST-T wave changes were seen with regadenoson. Gated LVEF = 61%. Perfusion imaging was negative for ischemia or infarct. History: Hypertension History of Smoking Stress Test Summary: Stress Test Type: Pharmacologic Regadenoson 0.4mg/5ml given IV Baseline Information: Initial Heart Rate: 67 Blood Pressure: 142/84 Stress Information: Test Terminated Due to (primary): As per protocol Maximum Blood Pressure: 124/82 Maximum Heart Rate: 85 Percent Maximum Heart Rate Achieved: 54 Double Product: [id number] Symptoms: Chest pain, Nausea Nuclear Summary: SPECT myocardial perfusion imaging using Tc99m Sestamibi given intravenously was performed at rest and following cardiac stress testing. The resting images were obtained following initial dose of 11.6 mCi. Following stress an additional dose of 35 mCi was given at peak exercise or 30 seconds post regadenoson infusion. Findings: Stress Note * Resting ECG demonstrated normal sinus rhythm. * No baseline arrhythmias were noted. * Patient reported mild chest pain prior to the test. Chest pain mildly worsened with regadenoson. * No arrhythmias were noted during stress. * Non-specific ST-T wave changes were seen with regadenoson. Hemodynamic responses * Normal hemodynamic responses to pharmacologic stress. Study Quality * Study quality is good. Gated EF % * Gated LVEF = 61%. Left Ventricle * The left ventricle is not dilated. * Normal Segmental Perfusion in rest. * Normal segmental perfusion in stress. TID * No evidence of transient ischemic dilatation. Updated by Daniel Guillen MD, FACC on 03/03/2016 12:31:18 PM electronically signed on 03/03/2016 12:32:41 PM with status of Final
[2016-03-03] MEDS ORDERED: FLU VACC QS2016-17 36MOS UP/PF 0.5 ML SYRINGE IM ONE (13:43)
--- NOTE | 2016-03-03 18:27 | Electrocardiograph Report ---
[facility] Test Date: 2016-03-02 Pat Name: Jo-Ann Hartman Department: 103 Room: 2NE26 Gender: F [employer] Agent: JESUS : 1955 Requested By: Tu Mark Order Number: [id number] Reading MD: Carrie Robles Measurements Intervals [place] Rate: 74 P: 66 HI: 165 QRS: 0 QRSD: 77 T: 13 QT: 407 QTc: 434 Interpretive Statements SINUS RHYTHM Electronically Signed On 03-03-16 18:25:28 EST by Carrie Robles
== END 2016-03-03 17:02 | disposition home or self-care (01) ==
LOC: 2NENU 15:16 → EMEROO 15:16 → SUATTDRO 18:33 → 2NENU 19:46
PROVIDERS: ADMIT Nurse Practitioner Family; ATTEND Internal Medicine

== ENCOUNTER 2020-06-18 01:57 | Observation (INO) ==
[2020-06-18] MEDS ORDERED: Nitroglycerin 0.4 MG TAB.SUBL SL PRN (02:08)
[2020-06-18 02:23] LABS: Basophils % 0.6 %; Eosinophils # 0.7 K/mcL (0.0-0.6); Eosinophils % 10.5 %; Hematocrit 35.7 % (35.3-44.9); Hemoglobin 11.5 g/dL (11.5-15.4); Immature Granulocytes % 0.3 % (0-4); Lymphocytes # 3.6 K/mcL (0.6-4.6); Lymphocytes % 53.3 %; Mean Corpuscular HGB Conc 32.2 g/dL (31.6-35.5); Mean Corpuscular Hemoglobin 27.8 pg (28.0-33.3); Mean Corpuscular Volume 86.2 fL (83.0-100.0); Mean Platelet Volume 10.1 fL (9.4-12.4); Monocytes # 0.5 K/mcL (0.0-1.3); Monocytes % 6.8 %; Neutrophils # 1.9 K/mcL (1.6-8.9); Platelet Count 252 K/mcL (140-400); Red Blood Count 4.14 M/mcL (3.82-4.97); Red Cell Distribution Width 13.2 % (11.5-14.5); Segmented Neutrophils % 28.5 %; White Blood Count 6.8 K/mcL (4.3-11.1)
[2020-06-18] MEDS ORDERED: GI Cocktail 40 ML EACH PO ONE (02:25)
[2020-06-18] MEDS ORDERED: Isovue-370 500 ML BOTTLE IVP ONE (02:31)
[2020-06-18 02:33] LABS: Alanine Aminotransferase 31 Units/L (7-52); Albumin 4.2 g/dL (3.5-5.7); Albumin/Globulin Ratio 1.8 (1.1-2.2); Alkaline Phosphatase 65 Units/L (34-104); Aspartate Amino Transferase 26 Units/L (13-39); BUN/Creatinine Ratio 19 (6-26); Bilirubin,Indirect 0.3 mg/dL (0.0-1.0); Bilirubin,Total 0.3 mg/dL (0.3-1.0); Blood Urea Nitrogen 16 mg/dL (8-23); Calcium 9.5 mg/dL (8.6-10.3); Carbon Dioxide 26 mEq/L (23-29); Chloride 104 mEq/L (98-107); Globulin 2.4 g/dL (2.4-3.5); Glucose 132 mg/dL (70-105); Lipase 33 Units/L (11-82); Osmolality,Calculated 289 (280-300); Potassium 4.2 mEq/L (3.5-5.1); Sodium 138 mEq/L (136-145); Total Protein 6.6 g/dL (6.4-8.9); Troponin I < 0.03 ng/mL (< 0.04); eGFR For African Americans > 60 (> 60); eGFR For Non-African Americans > 60 (> 60)
[2020-06-18 03:07] LABS: Platelet Estimate Normal (Normal); Reactive Lymphocytes Present (Not Present)
[2020-06-18 04:38] LABS: Bilirubin,Urine Negative (Negative); Blood,Urine Negative (Negative); Clarity,Urine Clear (Clear); Color,Urine Colorless (Yellow); Glucose,Urine (UA) Normal (Normal); Ketones,Urine Negative (Negative); Leukocyte Esterase,Urine Negative (Negative); Nitrite,Urine Negative (Negative); PH,Urine 6.5 pH Units (5.0-8.0); Protein,Urine Negative (Neg-Trace); Specific Gravity,Urine > 1.030 (1.010-1.025); Urobilinogen,Urine Normal (Normal)
[2020-06-18 04:40] LABS: RBC,Urine 0-3 per hpf (0-3); WBC,Urine 0-3 per hpf (0-3)
[2020-06-18 04:41] LABS: Mucus,Urine Few per lpf (None-Few); Squamous Epithelial Cell,Urine Few per hpf (None-Few)
[2020-06-18] MEDS ORDERED: Perflutren Lipid Microsphere 1.3 ML in 0.9 % Sodium Chloride 8.7 ML IVP PRN (05:15)
[2020-06-18] MEDS ORDERED: Naloxone 0.4 MG/ML INJ IVP PRN (05:16)
[2020-06-18] MEDS ORDERED: Regadenoson 0.4 MG/5 ML SYRINGE IVP ONE (06:40)
[2020-06-18] MEDS ORDERED: hydrOXYzine pamoate 25 MG CAPSULE PO PRN (08:38)
[2020-06-18] MEDS ORDERED: tiZANidine 4 MG TABLET PO SCH (09:00)
[2020-06-18 12:37] VITALS: BP 126/82
[2020-06-18 13:34] LABS: Estimated Average Glucose 140 mg/dl; Hemoglobin A1C 6.5 %
[2020-06-18 13:45] LABS: Chol/HDL Ratio 3.9 (0-4.9)
[2020-06-18] MEDS ORDERED: Mirtazapine 15 MG TABLET PO SCH (21:00)
== END 2020-06-18 14:50 | disposition home or self-care (01) ==
LOC: 3BNU 01:57 → EMEROOARM 01:57 → SUATTDRO 05:00 → 3BNU 05:34
PROVIDERS: ADMIT Family Medicine; ATTEND Internal Medicine